=== PATIENT | female | born 1965 | race Caucasian/White ===

== ENCOUNTER 2018-02-27 23:50 | Emergency (ER) | payer OTHER ==
[~2018-02-27] VITALS: Ht 167.6 cm; Wt 104.3 kg
[2018-02-28 00:30] VITALS: BP 125/71
[2018-02-28 01:12] LABS: Urine Bacteria NONE SEEN /hpf (None Seen); Urine Blood Negative /uL (Negative); Urine Specific Gravity 1.002 (1.001-1.035); Urine WBC <1 /hpf (0 - 5)
[2018-02-28] MEDS ORDERED: LACTULOSE 20Gm/30ML SOLN PO ONE (01:30)
== END 2018-02-28 01:55 | disposition home or self-care (01) ==
LOC: ER 23:55
DX: K59.00 Constipation, unspecified (principal); Z88.6 Allergy status to analgesic agent
CPT/HCPCS: 81001; 81025; 93005